=== PATIENT | male | born 1965 | race Two or more races ===

== ENCOUNTER → 2023-10-15 | Emergency (ER) | payer OTHER ==
[~2023-10-15] VITALS: Ht 170.2 cm; Wt 90.7 kg
[~2023-10-15] MED LIST: HYOSCYAMINE SULFATE 0.125 MG TAB.SUBL SL ONE; KETOROLAC TROMETHAMINE 30 MG VIAL IV STA; MEPERIDINE HCL/PF 50 MG/ML VIAL IM STA; PROMETHAZINE HCL 50 MG/ML AMPUL IM STA; RINGERS SOLUTION,LACTATED 1,000 ML IV STA; VASOTEC10 MG; XARELTO10 MG PO
[2023-10-15 03:55] LABS: HEMATOCRIT 44.3 % (39.0-48.0); HEMOGLOBIN 15.4 g/dL (13-16.00); MEAN CELL VOLUME 92.3 fL (80.0-100.00); MEAN CORPUSCULAR HEMOGLOBIN 32.1 pg (27.00-32.0); MEAN CORPUSCULAR HGB CONC 34.8 g/dl (32.0-36.0); PLATELET COUNT 147 K/uL (150-450); RED CELL DISTRIBUTION WIDTH 12.9 % (11.5-14.5)
[2023-10-15 05:06] LABS: INR 1.01; PARTIAL THROMBOPLASTIN TIME 24.5 SECONDS (22.0-34.0); PROTHROMBIN TIME 10.6 SECONDS (9.0-11.5)
[2023-10-15 05:10] LABS: ALBUMIN 3.9 gm/dL (3.4-5.0); BILIRUBIN TOTAL 0.42 mg/dL (0.3-1.2); CALCIUM 8.8 mg/dL (8.5-10.1); CREATININE SERUM 1.09 mg/dL (0.70-1.30); GFR 69.48; GLOBULINA 3.2 G/DL (2.4-3.5); POTASSIUM 3.39 mEq/L (3.5-5.1); TOTAL PROTEIN 7.1 gm/dL (6.4-8.2)
[2023-10-15 09:26] LABS: PH,URINE 6.5 (5.0-8.0); URINE APPEARANCE Clear; URINE BILIRRUBIN Negative (NEGATIVE); URINE BLOOD Negative; URINE COLOR Yellow; URINE GLUCOSE Negative (NEGATIVE); URINE LEUKOCYTE Negative; URINE NITRATE Negative; URINE PROTEIN Negative (NEGATIVE); URINE UROBILINOGEN 0.2 E.U./dl
[2023-10-15 09:30] LABS: URINE BACTERIA 11.3 uL (0.0-1933); URINE RBC 10.9 uL (0.0-20.8); URINE WBC 13.7 uL (0.0-23.2)
[2023-10-15 10:02] LABS: URINE EPITHELIAL CELLS 0.7 uL (0.0-38.8)
== END | disposition left against medical advice (07) ==
LOC: ER 01:18
DX: R10.32 Left lower quadrant pain (principal); K57.30 Diverticulosis of large intestine without perforation or abscess without bleeding; K80.20 Calculus of gallbladder without cholecystitis without obstruction; K76.89 Other specified diseases of liver